=== PATIENT | male | born 1970 | race Caucasian/White ===

== ENCOUNTER 2016-08-02 09:31 | Emergency (ER) | payer OTHER ==
[2016-08-02 10:18] LABS: BASOPHILS 0.5 % (0.0-2.0); EOSINOPHILS 0.3 % (0.0-6.0); HEMATOCRIT 50.5 % (42.0-54.0); HEMOGLOBIN 17.7 g/dL (14.0-18.0); LYMPHOCYTES 19.7 % (20.0-40.0); LYMPHOCYTES# 1.9 X 10^3uL (0.8-3.8); MEAN CELL VOLUME 85.9 fL (80.0-100.0); MEAN CORPUS. HGB CONCENTRATION 35.2 g/dL (32.0-36.0); MEAN CORPUSCULAR HEMOGLOBIN 30.2 pg (29.0-35.0); MEAN PLATELET VOLUME 9.4 fL (7.4-10.4); MONOCYTES 5.6 % (2.0-10.0); MONOCYTES# 0.5 X 10^3uL (0.2-1.0); NEUTROPHILS 73.9 % (54.0-75.0); NEUTROPHILS# 7.2 X 10^3uL (2.6-6.7); PLATELET COUNT 248 X 10^3uL (130-440); RED BLOOD COUNT 5.87 X 10^6uL (4.20-6.10); WHITE BLOOD COUNT 9.6 X 10^3uL (3.9-10.7)
[2016-08-02 10:29] LABS: BLOOD UREA NITROGEN 17 mg/dL (9-20); CALCIUM 9.8 mg/dL (8.4-10.2); CHLORIDE 106 mmol/L (98-107); EST GLOMERULAR FILTRATION RATE > 60 mL/min; GLUCOSE 101 mg/dL (70-100); POTASSIUM 3.9 mmol/L (3.5-5.1); SODIUM 145 mmol/L (137-145)
[2016-08-02 10:42] LABS: TROPONIN I < 0.012 ng/mL (0.00-0.034)
--- NOTE | 2016-08-02 11:04 | ER NURSING DOCUMENTATION ---
Nurse's Notes [facility] Name:Jose Nuñez Age:46 yrs Sex:Male :1970 Arrival Date:08/02/2016 Time:09:31 BedTrauma-A Private MD: Diagnosis:Atypical Chest Pain Presentation: 08/02 09:32 Acuity: ELIAS 2 lp 09:32 Notified ED Physician of Dr. Sanchez notified. lp 09:48 Acuity: ELIAS 2 lp 10:13 Presenting complaint: Patient states: chest pain. Transition of care: Home. AIR CAT lp ACTIVATION no other not indicated at this time. Asprin Given Given in ED 324 mg po. Risk considerations:. 10:13 Method Of Arrival: Private Vehicle lp Triage Assessment: 10:17 General: Appears in no apparent distress, Behavior is appropriate for age. Pain: lp Complains of pain in left clavicle, anterior aspect of left upper chest and left breast Pain radiates to left arm Pain currently is 3 out of 10 on a pain scale. EENT: No deficits noted. Neuro: No deficits noted. Cardiovascular: Heart tones S1 S2. Respiratory: No deficits noted. GI: No deficits noted. : No deficits noted. Derm: No deficits noted. Musculoskeletal: No deficits noted. Historical: - Allergies: SULFA (SULFONAMIDES); Cephalexin; - Home Meds: 1. lisinopril 10 mg oral tab 1 tab once daily for Hypertension 2. Vitamin D Oral 3. multivitamin oral tab - PMHx: Hypertension; - Tetanus: < 10 years. - Ebola Screening: : Patient negative for fever greater than or equal to 101.5 degrees Fahrenheit, and additional compatible Ebola Virus Disease symptoms. Patient denies exposure to infectious person. Patient denies travel to an Ebola-affected area in the 21 days before illness onset. . - Immunization history: Pneumococcal vaccine is up to date. - Social history: Smoking status: Patient states was never smoker of tobacco. Screenin:18 Infectious Disease Risk None. Abuse screen: Denies threats or abuse. Denies injuries lp from another. Nutritional screening: No deficits noted. Assessment: 10:18 See Triage Assessment done by same RN. Pain: Complains of pain in left clavicle, lp anterior aspect of left upper chest and left breast Pain began 3 hours ago. Vital Signs: 09:32 BP 164 / 97; Pulse 91; Resp 16; Temp 98.8(TE); Pulse Ox 96% on R/A; Weight 88.45 kg; lp Height 5 ft. 8 in. (172.72 cm); Pain 3/10; 09:47 BP 152 / 97; Pulse 91; Resp 16; Pulse Ox 99% on R/A; lp 10:00 BP 139 / 95; Pulse 94; Resp 16; Pulse Ox 98% on R/A; lp 10:30 BP 123 / 81; Pulse 85; Resp 16; Pulse Ox 95% on R/A; lp 09:32 Body Mass Index 29.65 (88.45 kg, 172.72 cm) lp ED Course: 09:[address] Sanchez notified. lp 09:34 EKG done. (by ED staff). lp 09:37 Patient arrived in ED. lizbeth 09:37 Azeem Sanchez MD is Attending Physician. sc 09:40 Inserted peripheral IV: 20 gauge in left antecubital area. lp 09:48 Karine Bonner RN is Primary Nurse. lp 09:49 Triage completed. lp 10:19 Valuables Remains with patient. Cardiac Monitoring On for Nurse Monitoring only. Pulse lp Ox - RN Monitoring Only NIBP On - RN Monitoring Only. 10:19 Oxygen O2 via none at this time. lp 10:29 Keisha Noguera DO is Referral Physician. sc 11:02 EKG attached lp Administered Medications: 09:45 Drug: Aspirin Chewable Tablet 324 mg; Route: PO; lp 10:56 Follow up: Response: No adverse reaction; No change in condition lp Outcome: 10:29 Discharge ordered by . sc 11:03 Discharged to home ambulatory. lp 11:03 Condition: stable 11:03 Instructed on discharge instructions, follow up and referral plans. medication usage. 11:04 Patient left the ED. lp Signatures: Karine Bonner, MYLA RN lp Azeem Sanchez MD MD sc Davies, Jackie, Reg Reg lizbeth
--- NOTE | 2016-08-02 11:04 | ER PHYSICIAN DOCUMENTATION ---
Physician Documentation [facility] Name:Jose Nuñez Age:46 yrs Sex:Male :1970 Arrival Date:08/02/2016 Time:09:31 BedTrauma-A Private MD: Azeem Dupree Disposition: 08/02 10:28 Critical Care: not applicable. ak Disposition: 08/02/16 10:29 Discharged to Home/Self Care. Impression: Atypical Chest Pain. - Condition is Good. - Discharge Instructions: CHEST PAIN Atypical - CHEST PAIN, Uncertain Cause. - Medical Reconciliation form form. - Follow up: Keisha Noguera DO; When: 1 - 2 days; Reason: Recheck today's complaints, Continuance of care. - Problem is new. - Symptoms are resolved. HPI: 10:25 This 46 yrs old Male presents to ER via Private Vehicle with complaints of sc Chest Pain. 10:25 The patient or guardian reports chest pain that is located primarily in the anterior sc chest wall. Onset: 6 hour(s) ago. The pain does not radiate. There has been no movement of pain. Associated signs and symptoms: Pertinent positives: diaphoresis, Pertinent negatives: abdominal pain, lower extremity swelling, lightheadedness, nausea, palpitations, shortness of breath. The chest pain is described as sharp. Duration: The patient or guardian reports a single episode, that lasted 1 minute(s). Severity of pain: At its worst the pain was severe in the emergency department the pain has resolved. Risk factors for coronary artery disease include: This patient has a family history of coronary artery disease. 42 year old sister with MD recently. Historical: - Allergies: SULFA (SULFONAMIDES); Cephalexin; - Home Meds: 1. lisinopril 10 mg oral tab 1 tab once daily for Hypertension 2. Vitamin D Oral 3. multivitamin oral tab - PMHx: Hypertension; - Tetanus: < 10 years. - Ebola Screening: : Patient negative for fever greater than or equal to 101.5 degrees Fahrenheit, and additional compatible Ebola Virus Disease symptoms. Patient denies exposure to infectious person. Patient denies travel to an Ebola-affected area in the 21 days before illness onset. . - Immunization history: Pneumococcal vaccine is up to date. - Social history: Smoking status: Patient states was never smoker of tobacco. ROS: 10:27 Constitutional: Negative for fever, chills, and weight loss. sc Eyes: Negative for injury, pain, redness, and discharge. Neck: Negative for injury, pain, and swelling. Respiratory: Negative for shortness of breath, cough, wheezing, and pleuritic chest pain. Abdomen/GI: Negative for abdominal pain, nausea, vomiting, diarrhea, and constipation. Back: Negative for injury and pain. Skin: Negative for injury, rash, and discoloration. 10:27 Neuro: Negative for headache, weakness, numbness, tingling, and seizure. sc 10:27 Cardiovascular: Positive for chest pain, Negative for edema, orthopnea, palpitations, paroxysmal nocturnal dyspnea. Exam: Constitutional: This is a well developed, well nourished patient who is awake, alert, and in no acute distress. Head/Face: Normocephalic, atraumatic. Eyes: Pupils equal round and reactive to light, extra-ocular motions intact. Lids and lashes normal. Conjunctiva and sclera are non-icteric and not injected. Cornea within normal limits. Periorbital areas with no swelling, redness, or edema. ENT: Nares patent. No nasal discharge, no septal abnormalities noted. Tympanic membranes are normal and external auditory canals are clear. Oropharynx with no redness, swelling, or masses, exudates, or evidence of obstruction, uvula midline. Mucous membranes moist. Neck: Trachea midline, no thyromegaly or masses palpated, and no cervical lymphadenopathy. Supple, full range of motion without nuchal rigidity, or vertebral point tenderness. No meningismus. Chest/axilla: Normal chest wall appearance and motion. Nontender with no deformity. No lesions are appreciated. Cardiovascular: Regular rate and rhythm with a normal S1 and S2. No gallops, murmurs, or rubs. Normal PMI, no JVD. No pulse deficits. Respiratory: Lungs have equal breath sounds bilaterally, clear to auscultation and percussion. No rales, rhonchi or wheezes noted. No increased work of breathing, no retractions or nasal flaring. Abdomen/GI: Soft, non-tender, with normal bowel sounds. No distension or tympany. No guarding or rebound. No evidence of tenderness throughout. Back: No spinal tenderness. No costovertebral tenderness. Full range of motion. 10:27 Skin: Warm, dry with normal turgor. Normal color with no rashes, no lesions, and no sc evidence of cellulitis. 10:30 Cardiovascular: Rate: normal, Rhythm: regular. ak Vital Signs: 09:32 BP 164 / 97; Pulse 91; Resp 16; Temp 98.8(TE); Pulse Ox 96% on R/A; Weight 88.45 kg; lp Height 5 ft. 8 in. (172.72 cm); Pain 3/10; 09:47 BP 152 / 97; Pulse 91; Resp 16; Pulse Ox 99% on R/A; lp 10:00 BP 139 / 95; Pulse 94; Resp 16; Pulse Ox 98% on R/A; lp 10:30 BP 123 / 81; Pulse 85; Resp 16; Pulse Ox 95% on R/A; lp 09:32 Body Mass Index 29.65 (88.45 kg, 172.72 cm) lp MDM: 09:37 Patient medically screened. ak 10:28 Differential diagnosis: abnormal EKG, acute myocardial infarction, anxiety, sc gastroesophageal reflux disease (GERD). Patient took aspirin in the Emergency Department. Patient refused fibrinolytic. Data reviewed: vital signs, nurses notes, lab test result(s), EKG, and as a result, I will discharge patient, continue to observe the patient. Data interpreted: volunteer assistant: rate is 90 beats/min, rhythm is normal sinus rhythm. ECG:. 11:02 EKG attached 08/02 10:21 Order name: CBC AUTO DIF, MDIF/RMOR IF IND; Complete Time: 10:45 [facility] 08/02 10:45 Interpretation: Normal: Normal. ak 08/02 10:30 Order name: BASIC METABOLIC PANEL; Complete Time: 10:45 [facility] 08/02 10:45 Interpretation: Normal. ak 08/02 10:30 Order name: MAGNESIUM; Complete Time: 10:45 [facility] 08/02 10:45 Interpretation: Normal. ak 08/02 10:43 Order name: TROPONIN I; Complete Time: 10:45 [facility] 08/02 10:45 Interpretation: Normal. ak 08/02 09:39 Order name: 12-lead EKG; Complete Time: 10:20 ak 08/02 09:39 Order name: Iv Saline Lock; Complete Time: 10:20 ak 08/02 09:39 Order name: Place Patient On Monitor; Complete Time: :20 ak 08/02 09:39 Order name: Pulse Ox Continuous; Complete Time: : ak EC: Rate is 90 beats/min. Rhythm is regular. QRS [place] is Normal. OK interval is normal. QRS sc interval is normal. QT interval is normal. No Q waves. T waves are Flattened. No ST changes noted. Clinical impression: Abnormal EKG without significant change. Interpreted by me. Reviewed by me. Dispensed Medications: :45 Drug: Aspirin Chewable Tablet 324 mg; Route: PO; lp 10:56 Follow up: Response: No adverse reaction; No change in condition lp Signatures: Karine Bonner RN RN Azeem Sanchez MD MD ak
== END 2016-08-02 11:04 | disposition home or self-care (01) ==
LOC: ER 09:31
DX: R07.89 Other chest pain (principal); R94.31 Abnormal electrocardiogram [ECG] [EKG]; Z82.49 Family history of ischemic heart disease and other diseases of the circulatory system
CPT/HCPCS: 80048; 83735; 84484; 85025; 93005; 99284